=== PATIENT | male | born 2005 | race Caucasian/White ===

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

== ENCOUNTER 2024-06-22 14:47 | Emergency (ER) | payer OTHER ==
[~2024-06-22] VITALS: Ht 182.9 cm; Wt 82.5 kg
[2024-06-22 14:51] VITALS: BP 118/71
== END 2024-06-22 16:43 | disposition home or self-care (01) ==
LOC: ER 14:47
DX: L08.89 Other specified local infections of the skin and subcutaneous tissue (principal); Z53.29 Procedure and treatment not carried out because of patient's decision for other reasons
CPT/HCPCS: 73120; 99283-25

== ENCOUNTER → 2024-06-22 | Outpatient (CLI) | payer OTHER | END | disposition home or self-care (01) | LOC: LAB SHORT 17:29 → LAB 17:29 | DX: L02.511 Cutaneous abscess of right hand (principal) | CPT/HCPCS: 87070; 87075; 87077; 87147; 87186; 87205 ==